=== PATIENT | male | born 1985 | race Caucasian/White ===

== ENCOUNTER 2017-11-28 00:04 | Emergency (ER) | payer OTHER ==
[~2017-11-28] VITALS: Ht 177.8 cm; Wt 86.2 kg
[2017-11-28] MEDS ORDERED: WELLBUTRIN 100100 MG PO (00:15)
[2017-11-28] MEDS ORDERED: NAPROXEN DELAY500 M1 PO (00:28)
[2017-11-28 00:50] VITALS: BP 128/79
== END 2017-11-28 00:54 | disposition home or self-care (01) ==
LOC: M.ERS 00:04
DX: M67.48 Ganglion, other site (principal); M25.531 Pain in right wrist

== ENCOUNTER 2018-01-31 11:08 | Emergency (ER) | payer OTHER ==
[~2018-01-31] VITALS: Ht 177.8 cm; Wt 90.7 kg
[~2018-01-31 11:08] MED LIST: NAPROXEN DELAY500 M1 PO; WELLBUTRIN 100100 MG PO
[2018-01-31] MEDS ORDERED: TRAMADOL 50 MG50 MG PO (12:12)
[2018-01-31] MEDS ORDERED: KEFLEX500 M1 PO (12:12)
[2018-01-31 12:45] VITALS: BP 116/82
== END 2018-01-31 12:46 | disposition home or self-care (01) ==
LOC: M.ERS 11:08
DX: S61.411A Laceration without foreign body of right hand, initial encounter (principal); F17.210 Nicotine dependence, cigarettes, uncomplicated; X58.XXXA Exposure to other specified factors, initial encounter; Y93.89 Activity, other specified; Y92.89 Other specified places as the place of occurrence of the external cause; Y99.8 Other external cause status